=== PATIENT | female | born 1990 | race Caucasian/White ===

== ENCOUNTER 2018-12-10 08:42 | Inpatient (IN) | payer OTHER ==
[~2018-12-10] VITALS: Ht 154.9 cm; Wt 90.9 kg
[2018-12-16 17:00] VITALS: BP 149/109
== END 2018-12-16 17:15 | disposition home or self-care (01) | DRG 788 ==
LOC: LDOP 08:42 → LDIP 10:02 → 2NE 12-13 07:24 → 2NW 12-13 07:46
PROVIDERS: ADMIT Obstetrics & Gynecology; ATTEND Obstetrics & Gynecology
PROC: 10H07YZ Insertion of Other Device into Products of Conception, Via Natural or Artificial Opening (ICD-10-PCS; 2018-12-10)
PROC: 3E033VJ Introduction of Other Hormone into Peripheral Vein, Percutaneous Approach (ICD-10-PCS; 2018-12-10)
PROC: 10D00Z1 Extraction of Products of Conception, Low, Open Approach (ICD-10-PCS; principal; 2018-12-12)
DX: O14.14 Severe pre-eclampsia complicating childbirth (principal); Z37.0 Single live birth; O62.1 Secondary uterine inertia; Z3A.40 40 weeks gestation of pregnancy; R00.0 Tachycardia, unspecified; O99.43 Diseases of the circulatory system complicating the puerperium; O99.214 Obesity complicating childbirth; E66.9 Obesity, unspecified
CPT/HCPCS: 36415; J3490; J7121; 80053; 81001; 82248; 82570; 82803; 83735; 84156; 84550; 85025; 86850; 86900; G0378; J0690; J1170; J1885; J2405; J3010; J0360; J2590; J2765; J3475; J7120